=== PATIENT | female | born 1985 | race Caucasian/White ===

== ENCOUNTER 2022-03-10 11:23 | Emergency (ER) | payer OTHER, SELFPAY ==
--- NOTE | 2022-03-10 | ECG_ITS ---
Test Reason : chest pain Blood Pressure : / mmHG Vent. Rate : 073 BPM Atrial Rate : 073 BPM P-R Int : 182 ms QRS Dur : 088 ms QT Int : 384 ms P-R-T Axes : 040 -31 011 degrees QTc Int : 423 ms Normal sinus rhythm Left axis deviation Abnormal ECG When compared with ECG of 28-JUL-2017 22:13, Nonspecific T wave abnormality, improved in Anterolateral leads QT has shortened Referred By: Generic ED Physician Electronically Signed By:SHER GARCIA
--- NOTE | ~2022-03-10 | XR_ITS ---
EXAMINATION: XR CHEST CLINICAL INFORMATION: Chest pain COMPARISON: Previous chest x-ray July 2017 TECHNIQUE: 2 views of the chest were obtained. FINDINGS: The cardiac and mediastinal contours are normal. The lungs are clear. There is no pleural effusion or pneumothorax. There is slight elevation of the right hemidiaphragm that is unchanged. There are mild degenerative changes of the spine. XR/XR chest 2V IMPRESSION: No evidence for acute disease in the chest.
[2022-03-10 11:47] VITALS: BP 137/83; PULSE 75; RESP 18; TEMP 36.9; O2SAT 99; BMI 45.6
[2022-03-10 12:04] LABS: MANUAL DIFF FLAG NO
[2022-03-10 12:06] LABS: Basophils Absolute Auto 0.1 X10*3/uL (0.0-0.2); Basophils Percent Auto 0.7 % (0-2); Eosinophils Absolute Auto 0.1 X10*3/uL (0.0-0.4); Eosinophils Percent Auto 1.7 % (0-4); Hematocrit 38.7 % (37.0-47.0); Hemoglobin 12.4 g/dl (12.0-16.0); Imm Gran Abs Auto 0.02 X10*3/uL (0.00-0.03); Imm Gran Pct Auto 0.3 % (0.0-0.4); Lymphocytes Absolute Auto 1.9 X10*3/uL (1.2-4.9); Lymphocytes Percent Auto 26.9 % (20-40); Mean Corpuscular Hemoglobin 26.1 pg (27.0-33.0); Mean Corpuscular Volume 81.3 fL (80.0-98.0); Mean Platelet Volume 11.3 fL (9.4-12.3); Monocytes Absolute Auto 0.4 X10*3/uL (0.1-1.2); Monocytes Percent Auto 5.6 % (2-11); Neutrophils Absolute Auto 4.7 x10*3/uL (2.0-8.3); Neutrophils Percent Auto 64.8 % (45-73); Platelet Count 269 X10*3/uL (160-400); Red Blood Count 4.76 X10*6/uL (4.20-5.50); Red Cell Distribution Width 14.5 % (11.0-16.0); White Blood Count 7.2 X10*3/uL (4.8-10.8)
[2022-03-10 12:21] LABS: COVID-19 Test Negative (Negative); IDNOW Serial# 16C4AD1C
[2022-03-10 12:26] LABS: Anion Gap 11 (12-20); Blood Urea Nitrogen 13 mg/dL (9-16); Calcium 9.5 mg/dL (8.4-10.2); Carbon Dioxide 28 mmol/L (22-29); Chloride 105 mmol/L (96-108); Creatinine Clr Calc Pharmacy 127.9; Estimated Glomerular Filt Rate > 60; Glucose Random 102 mg/dL (60-115); Potassium 4.6 mmol/L (3.3-5.1); Sodium 139 mmol/L (135-145)
[2022-03-10 12:30] LABS: Troponin-I High Sensitivity < 3.5 ng/L (<3.5-17.0)
--- NOTE | 2022-03-10 13:29 | ED.CHESTPAIN ---
HPI - Chest Pain General Chief Complaint: Chest Pain Stated Complaint: chest pain , l shoulder pain Time Seen by Provider: 03/10/22 13:20 Source: patient Mode of arrival: ambulatory History of Present Illness HPI narrative: 37-year-old female with no significant past medical history presenting to the ED complaining of left shoulder pain radiating down LUE x 1 week, now with left anterior chest wall tightness radiating to back woersening today. Admits symptoms worse with shoulder movement and deep breathing. Does take oral OCPs. Denies fever, chills, cough, SOB, abdominal pain, nausea/vomiting, pedal edema/calf tenderness, recent travel, history of clots complaint: chest pain Onset (ago): day(s) Related Data Previous Rx's Medication Instructions Recorded cyclobenzaprine 5 mg tablet 5 mg PO Q8H PRN pain (scale score 03/10/22 7-10) 5 days #14 tabs lidocaine 5 % topical patch 1 patch topical DAILY PRN pain #30 03/10/22 (Lidoderm) ea naproxen 500 mg tablet 500 mg PO BID PRN pain 10 days #20 03/10/22 tabs Allergies Allergy/AdvReac Type Severity Reaction Status Date / Time No Known Allergies [NKA] Allergy Mild NOT Unverified 05/29/20 17:44 APPLICABLE Review of Systems Review of Systems: Constitutional: No Fever, No Chills, No Night Sweats, No Fatigue, No Malaise ENT/Mouth: No Ear Pain, No sore throat, No Rhinorrhea, No Swallowing Difficulty Eyes: No Eye Pain, No Swelling, No Redness, No Vision Changes Cardiovascular: + Chest Pain, No SOB, No Dyspnea on Exertion, No Orthopnea, No Edema, No Palpitations Respiratory: No Cough, No Sputum, No Dyspnea Gastrointestinal: No Nausea, No Vomiting, No Diarrhea, No Constipation, No Abdominal pain Genitourinary: No irregular bleeding, No Dysuria, No Urinary Frequency, No Hematuria, No Flank Pain Musculoskeletal: + joint pain, No Myalgias, No Joint Swelling Skin: No Skin Lesions, No rash Neuro: No Weakness, No Numbness, + Paresthesias, No Loss of Consciousness, No Dizziness, No Headache Yes all other systems are reviewed and are negative [facility] Past Medical History Attestation statement: The following information was validated with the patient. Social History Social History Advance Directives: No Advance Directives Information Provided: Yes Physical Exam Vital Signs: Vital Signs: Last Vital Signs Temp 98.5 F 03/10/22 11:47 Pulse 75 03/10/22 11:47 Resp 18 03/10/22 11:47 BP 137/83 03/10/22 11:47 Pulse Ox 99 03/10/22 11:47 O2 Del Method 03/10/22 11:47 BMI result Body Mass Index 45.6 Const: General: cooperative, healthy appearing and no acute distress Orientation/consciousness: patient oriented x3 Limitations: no limitations HEENT: Head: Yes normal to inspection and Yes atraumatic Ears: hearing grossly normal bilaterally General nose exam: Normal external nose present Face and sinus: Yes normal facial exam Eyes: General: appearance normal, both eyes and all related structures EOM: EOMs intact bilaterally Neck: Neck: Yes normal visual inspection and Yes no meningeal signs Chest: Other: tenderness to palpation to substernal area and left anterior chest wall. No ecchymosis/erythema Chest palpation & inspection: normal inspection of the chest, no crepitus and tenderness Resp: Effort & Inspection: normal respiratory effort and no respiratory distress Auscultation: clear to auscultation bilaterally, no crackles, no rales, no rhonchi and no wheezes Cardio: Rate: regular rate Heart sounds: S1 normal heart sound present and S2 normal heart sound present Peripheral pulses: Peripheral pulses 2+ throughout GI: Inspection: Yes normal to inspection Palpation (GI): Soft to palpation, nontender, no guarding and not rigid : General: Yes no CVA tenderness Back/Spine/Pelvis: Back: no CVA tenderness Skin: Rashes: no rashes Wounds: no wounds Neuro: General: patient oriented x3, tone normal, moves all extremities, no meningeal signs and no focal motor deficits Gait exam (Neuro): Normal gait present Extrem: Other: Full range of motion intact to left shoulder. Neurovascular intact distally. Pain elicited on movement General: Yes normal to inspection Course Course Course Narrative: -1355--no leukocytosis. Initial troponin negative. COVID-19 negative XR chest 2V IMPRESSION: No evidence for acute disease in the chest. -1413--D-dimer negative > PE unlikely. Repeat troponin equivocal > IA unlikely >Results discussed with patient including worrisome signs symptoms and strict return precautions and close follow-up with PCP. She verbalized understanding and feels safe for discharge home this time MDM - Chest Pain MDM Narrative Medical decision making narrative: 37-year-old female with no significant past medical history presenting to the ED complaining of left shoulder pain radiating down LUE x 1 week, now with left anterior chest wall tightness radiating to back woersening today. On exam vital signs stable, NAD, nontoxic appearing, lungs CTA, no pedal edema/calf tenderness, chest pain reproducible on exam. Concern for atypical ACS vs PE vs PNA vs MSK pain/strain. Unlikely dissection/AAA Plan: EKG, labs, CXR Differential Diagnosis Differential diagnosis: Likely unstable angina pectoris, atypical chest pain, costochondritis and chest pain Medical Records Data Attestation: I reviewed the patient's medical records. Lab Data Attestation: I reviewed the patient's lab results. Result diagrams: 03/10/22 11:59 03/10/22 11:59 Labs: Lab Results 03/10/22 03/10/22 03/10/22 Range/Units 11:59 11:59 11:59 WBC 7.2 (4.8-10.8) X10*3/uL RBC 4.76 (4.20-5.50) X10*6/uL Hgb 12.4 (12.0-16.0) g/dl Hct 38.7 (37.0-47.0) % MCV 81.3 (80.0-98.0) fL MCH 26.1 L (27.0-33.0) pg MCHC 32.0 (31.0-35.0) g/dl RDW 14.5 (11.0-16.0) % Plt Count 269 (160-400) X10*3/uL MPV 11.3 (9.4-12.3) fL Immature Gran % (Auto) 0.3 (0.0-0.4) % Neut % (Auto) 64.8 (45-73) % Lymph % (Auto) 26.9 (20-40) % [place] % (Auto) 5.6 (2-11) % Eos % (Auto) 1.7 (0-4) % Baso % (Auto) 0.7 (0-2) % Lymph # (Auto) 1.9 (1.2-4.9) X10*3/uL [place] # (Auto) 0.4 (0.1-1.2) X10*3/uL Eos # (Auto) 0.1 (0.0-0.4) X10*3/uL Baso # (Auto) 0.1 (0.0-0.2) X10*3/uL Abs Immat Gran (auto) 0.02 (0.00-0.03) X10*3/uL Absolute Neuts (auto) 4.7 (2.0-8.3) x10*3/uL Absolute Nucleated RBC 0.000 (0.0-0.012) X10*3/uL Nucleated RBC % (auto) 0.0 (0.0-0.2) /100WBC PT (10.0-13.1) SEC INR (0.9-1.1) D-Dimer High Sensitivty NG/ML Sodium 139 (135-145) mmol/L Potassium 4.6 (3.3-5.1) mmol/L Chloride 105 (96-108) mmol/L Carbon Dioxide 28 (22-29) mmol/L Anion Gap 11 L (12-20) BUN 13 (9-16) mg/dL Creatinine 0.89 (0.5-1.4) mg/dL Estim Creat Clear Calc 127.9 Estimated GFR > 60 Random Glucose 102 (60-115) mg/dL Calcium 9.5 (8.4-10.2) mg/dL Total Bilirubin 0.3 (0.0-1.0) mg/dL Direct Bilirubin < 0.2 (0.0-0.5) mg/dL AST 12 (5-31) U/L ALT 11 (0-31) U/L Alkaline Phosphatase 73 (39-117) U/L Troponin I High Sens < 3.5 (<3.5-17.0) ng/L Total Protein 7.5 (6.5-8.0) g/dL Albumin 4.3 (3.5-5.0) g/dL Lipase 32 (8-78) U/L COVID-19 ([facility]) (Negative) COVID-19 Clin Com 03/10/22 03/10/22 03/10/22 Range/Units 11:59 13:43 13:43 WBC (4.8-10.8) X10*3/uL RBC (4.20-5.50) X10*6/uL Hgb (12.0-16.0) g/dl Hct (37.0-47.0) % MCV (80.0-98.0) fL MCH (27.0-33.0) pg MCHC (31.0-35.0) g/dl RDW (11.0-16.0) % Plt Count (160-400) X10*3/uL MPV (9.4-12.3) fL Immature Gran % (Auto) (0.0-0.4) % Neut % (Auto) (45-73) % Lymph % (Auto) (20-40) % [place] % (Auto) (2-11) % Eos % (Auto) (0-4) % Baso % (Auto) (0-2) % Lymph # (Auto) (1.2-4.9) X10*3/uL [place] # (Auto) (0.1-1.2) X10*3/uL Eos # (Auto) (0.0-0.4) X10*3/uL Baso # (Auto) (0.0-0.2) X10*3/uL Abs Immat Gran (auto) (0.00-0.03) X10*3/uL Absolute Neuts (auto) (2.0-8.3) x10*3/uL Absolute Nucleated RBC (0.0-0.012) X10*3/uL Nucleated RBC % (auto) (0.0-0.2) /100WBC PT 11.3 (10.0-13.1) SEC INR 1.0 (0.9-1.1) D-Dimer High Sensitivty < 150 NG/ML Sodium (135-145) mmol/L Potassium (3.3-5.1) mmol/L Chloride (96-108) mmol/L Carbon Dioxide (22-29) mmol/L Anion Gap (12-20) BUN (9-16) mg/dL Creatinine (0.5-1.4) mg/dL Estim Creat Clear Calc Estimated GFR Random Glucose (60-115) mg/dL Calcium (8.4-10.2) mg/dL Total Bilirubin (0.0-1.0) mg/dL Direct Bilirubin (0.0-0.5) mg/dL AST (5-31) U/L ALT (0-31) U/L Alkaline Phosphatase (39-117) U/L Troponin I High Sens < 3.5 (<3.5-17.0) ng/L Total Protein (6.5-8.0) g/dL Albumin (3.5-5.0) g/dL Lipase (8-78) U/L COVID-19 ([facility]) Negative (Negative) COVID-19 Clin Com See Note ECG Data ECG #1: Attestation: I personally reviewed and interpreted this ECG as follows: ECG interpretation date: 03/10/22 ECG interpretation time: 11:46 Prior ECG tracings: available for review Interpretation: EKG normal sinus rhythm at a rate of 73. Nonspecific T-wave abnormality improved in anterior lateral leads from prior EKGs. QT has shortened. QTC 423 Discharge Plan Discharge Clinical Impression: Atypical chest pain, Left shoulder pain Patient Disposition: Home, Self-Care Instructions: Noncardiac Chest Pain (ED), Shoulder Pain (ED) Additional Instructions: Your blood work and chest x-ray were reassuring today in the emergency department. Please see epic follow up with her doctor Your pain is likely musculoskeletal Flexeril is a muscle relaxer, take at night as it makes you drowsy, do not drive, drink alcohol, or operate machinery while taking it Naproxen as an anti-inflammatory / pain medication, take with food Lidoderm patches are numbing patches, apply to painful area In addition take Tylenol at home If symptoms persist or worsen, pain becomes unbearable, you developed urinary retention or incontinence, or weakness return to the ED Prescriptions: New lidocaine [Lidoderm] 5 % adhesive patch,medicated 1 patch topical DAILY MDD remove after 12 hours PRN (Reason: pain) Qty: 30 0RF Rx Instructions: leave on most painful area for up to 12 hrs naproxen 500 mg tablet 500 mg PO BID PRN (Reason: pain) 10 Days Qty: 20 0RF cyclobenzaprine 5 mg tablet 5 mg PO Q8H PRN (Reason: pain (scale score 7-10)) 5 Days Qty: 14 0RF Referrals: Physician,Unknown J [Primary Care Provider] - 3 days
[2022-03-10 13:44] LABS: Alanine Aminotransferase 11 U/L (0-31); Albumin Level 4.3 g/dL (3.5-5.0); Alkaline Phosphatase 73 U/L (39-117); Aspartate Amino Transferase 12 U/L (5-31); Bilirubin Direct < 0.2 mg/dL (0.0-0.5); Bilirubin Total 0.3 mg/dL (0.0-1.0); Lipase 32 U/L (8-78); Total Protein 7.5 g/dL (6.5-8.0)
[2022-03-10 14:01] LABS: Prothrombin Time 11.3 SEC (10.0-13.1)
[2022-03-10 14:04] LABS: D Dimer High Sensitivity < 150 NG/ML
[2022-03-10 14:11] LABS: Troponin-I High Sensitivity < 3.5 ng/L (<3.5-17.0)
[2022-03-10 14:30] VITALS: BP 126/71; PULSE 66; RESP 16; O2SAT 97
== END 2022-03-10 14:32 | disposition home or self-care (01) ==
PROVIDERS: Physician Assistant; Emergency Provider Emergency Medicine
DX: R07.89 Other chest pain (principal); R20.2 Paresthesia of skin; M25.512 Pain in left shoulder; Z20.822 Contact with and (suspected) exposure to COVID-19
CPT/HCPCS: 36415; 71046; 80048; 80076; 83690; 84484; 85025; 85379; 85610; 87635; 93005; 99283

== ENCOUNTER 2023-05-19 11:36 | Outpatient (REF) | payer OTHER, SELFPAY ==
[2023-05-19 11:53] LABS: MANUAL DIFF FLAG NO
[2023-05-19 12:19] LABS: Basophils Percent Auto 0.7 % (0-2); Eosinophils Absolute Auto 0.1 X10*3/uL (0.0-0.4); Eosinophils Percent Auto 2.2 % (0-4); Hemoglobin 12.5 g/dl (12.0-16.0); Imm Gran Abs Auto 0.01 X10*3/uL (0.00-0.03); Imm Gran Pct Auto 0.2 % (0.0-0.4); Lymphocytes Percent Auto 34.6 % (20-40); Mean Corpuscular HGB Conc 32.1 g/dl (31.0-35.0); Mean Corpuscular Hemoglobin 26.1 pg (27.0-33.0); Mean Corpuscular Volume 81.4 fL (80.0-98.0); Mean Platelet Volume 12.4 fL (9.4-12.3); Monocytes Absolute Auto 0.5 X10*3/uL (0.1-1.2); Neutrophils Absolute Auto 3.2 x10*3/uL (2.0-8.3); Neutrophils Percent Auto 54.3 % (45-73); Platelet Count 286 X10*3/uL (160-400); Red Blood Count 4.79 X10*6/uL (4.20-5.50); Red Cell Distribution Width 15.1 % (11.0-16.0); White Blood Count 5.9 X10*3/uL (4.8-10.8)
[2023-05-19 12:25] LABS: Appearance Urine Turbid; Color Urine Dark Yellow; Glucose Urine UA Negative (Negative); Leukocyte Esterase Urine Large (3+) (Negative); Nitrite Urine Negative (Negative); Specific Gravity - Urine 1.025 (1.005-1.025); UMIC TRIGGER UACC YES; Urine Blood Negative (Negative); Urine Ketones Negative (Negative); Urine Protein Trace mg/dL (Neg-Trace)
[2023-05-19 12:37] LABS: Alanine Aminotransferase 18 U/L (0-31); Albumin Level 4.1 g/dL (3.5-5.0); Alkaline Phosphatase 60 U/L (39-117); Anion Gap 12 (12-20); Aspartate Amino Transferase 16 U/L (5-31); Bilirubin Total 0.4 mg/dL (0.0-1.0); Blood Urea Nitrogen 13 mg/dL (9-16); Calcium 9.6 mg/dL (8.4-10.2); Carbon Dioxide 25 mmol/L (22-29); Chloride 107 mmol/L (96-108); Cholesterol 222 mg/dL (<200); Estimated Glomerular Filt Rate > 60; Glucose Fasting 86 mg/dL (60-99); HDL Cholesterol 35 mg/dL (>40); LDL Cholesterol Calculated 160 mg/dL (<100); Potassium 3.8 mmol/L (3.3-5.1); Sodium 140 mmol/L (135-145); Total Protein 7.3 g/dL (6.5-8.0); Triglycerides 137 mg/dL (<150)
[2023-05-19 13:32] LABS: Bacteria Urine 4+ (None Seen); Hyaline Casts Urine 0-2 /LPF (0-2); Renal Epithelial Cells Urine Present; Squamous Epithelial Cell Urine >20 /HPF (0-2); Transitional Epi Cells Urine Present; UACC Culture Trigger YES; WBC Urine 21-50 /HPF (0-5)
== END 2023-05-19 11:37 | disposition home or self-care (01) ==
LOC: HO.LNP 11:36
PROVIDERS: Visit Provider Internal Medicine
DX: Z00.00 Encounter for general adult medical examination without abnormal findings (principal)
CPT/HCPCS: 80053; 80061; 81001; 81003; 85025; 87086

== ENCOUNTER 2023-05-26 14:35 | Outpatient (REF) | payer OTHER, SELFPAY ==
[2023-05-26 14:45] LABS: Appearance Urine Clear; Color Urine Yellow; Glucose Urine UA Negative (Negative); Leukocyte Esterase Urine Moderate (2+) (Negative); Nitrite Urine Negative (Negative); PH 5.5 (5.0-9.0); UMIC TRIGGER UA YES; Urine Blood Negative (Negative); Urine Ketones Negative (Negative); Urine Protein Negative (Neg-Trace)
[2023-05-26 14:48] LABS: Bacteria Urine Trace (None Seen); Hyaline Casts Urine 0-2 /LPF (0-2); RBC Urine 0-2 /HPF (0-2); WBC Urine 21-50 /HPF (0-5)
== END 2023-05-26 14:36 | disposition home or self-care (01) ==
LOC: HO.LNP 14:35
PROVIDERS: Visit Provider Internal Medicine
DX: R31.9 Hematuria, unspecified (principal)
CPT/HCPCS: 81001

== ENCOUNTER 2024-05-21 10:57 | Outpatient (REF) | payer OTHER, SELFPAY ==
[2024-05-21 11:24] LABS: Appearance Urine Turbid; Color Urine Yellow; Glucose Urine UA Negative (Negative); Leukocyte Esterase Urine Moderate (2+) (Negative); Nitrite Urine Negative (Negative); PH 5.5 (5.0-9.0); Specific Gravity - Urine 1.025 (1.005-1.025); UMIC TRIGGER UACC YES; Urine Blood Negative (Negative); Urine Ketones Negative (Negative); Urine Protein Trace mg/dL (Neg-Trace)
[2024-05-21 11:35] LABS: Bacteria Urine 4+ (None Seen); Hyaline Casts Urine 0-2 /LPF (0-2); RBC Urine 0-2 /HPF (0-2); Squamous Epithelial Cell Urine >20 /HPF (0-2); UACC Culture Trigger YES; WBC Urine >50 /HPF (0-5)
[2024-05-21 12:03] LABS: Alanine Aminotransferase 18 U/L (0-31); Alkaline Phosphatase 86 U/L (39-117); Anion Gap 14 (12-20); Aspartate Amino Transferase 15 U/L (5-31); Bilirubin Total 0.3 mg/dL (0.0-1.0); Blood Urea Nitrogen 17 mg/dL (9-16); Calcium 9.7 mg/dL (8.4-10.2); Carbon Dioxide 27 mmol/L (22-29); Chloride 105 mmol/L (96-108); Cholesterol 180 mg/dL (<200); Estimated Glomerular Filt Rate > 60; Glucose Fasting 95 mg/dL (60-99); HDL Cholesterol 39 mg/dL (>40); LDL Cholesterol Calculated 120 mg/dL (<100); Potassium 4.1 mmol/L (3.3-5.1); Sodium 142 mmol/L (135-145); Total Protein 7.1 g/dL (6.5-8.0); Triglycerides 108 mg/dL (<150)
== END 2024-05-21 10:58 | disposition home or self-care (01) ==
LOC: HO.LNP 10:57
PROVIDERS: Visit Provider Internal Medicine
DX: Z00.00 Encounter for general adult medical examination without abnormal findings (principal); E78.00 Pure hypercholesterolemia, unspecified
CPT/HCPCS: 80053; 80061; 81001; 87086

== ENCOUNTER 2024-05-28 13:28 | Outpatient (REF) | payer OTHER, SELFPAY ==
[2024-05-28 13:32] LABS: MANUAL DIFF FLAG NO
[2024-05-28 13:36] LABS: Basophils Absolute Auto 0.1 X10*3/uL (0.0-0.2); Basophils Percent Auto 0.7 % (0-2); Eosinophils Absolute Auto 0.2 X10*3/uL (0.0-0.4); Eosinophils Percent Auto 2.3 % (0-4); Hematocrit 35.6 % (37.0-47.0); Hemoglobin 11.4 g/dl (12.0-16.0); Imm Gran Abs Auto 0.03 X10*3/uL (0.00-0.03); Imm Gran Pct Auto 0.4 % (0.0-0.4); Lymphocytes Absolute Auto 1.8 X10*3/uL (1.2-4.9); Lymphocytes Percent Auto 25.8 % (20-40); Mean Corpuscular Hemoglobin 25.9 pg (27.0-33.0); Mean Corpuscular Volume 80.7 fL (80.0-98.0); Mean Platelet Volume 11.7 fL (9.4-12.3); Monocytes Absolute Auto 0.4 X10*3/uL (0.1-1.2); Monocytes Percent Auto 6.2 % (2-11); Neutrophils Absolute Auto 4.4 x10*3/uL (2.0-8.3); Neutrophils Percent Auto 64.6 % (45-73); Platelet Count 271 X10*3/uL (160-400); Red Blood Count 4.41 X10*6/uL (4.20-5.50); White Blood Count 6.9 X10*3/uL (4.8-10.8)
[2024-05-28 14:11] LABS: TSH reflex Free T4 1.09 uIU/mL (0.32-4.0)
== END 2024-05-28 13:29 | disposition home or self-care (01) ==
LOC: HO.LNP 13:28
PROVIDERS: Visit Provider Internal Medicine
DX: R63.5 Abnormal weight gain (principal)
CPT/HCPCS: 84443; 85025

== ENCOUNTER 2024-06-01 11:03 | Outpatient (REF) | payer OTHER, SELFPAY ==
[2024-06-01 11:59] LABS: Iron 42 mcg/dL (30-160); Percent Iron Saturation 13 % (15-50); Total Iron Binding Capacity 331 mcg/dL (228-428); Unsaturated Iron Binding 289 ug/dL
== END 2024-06-01 11:04 | disposition home or self-care (01) ==
LOC: HO.LNP 11:03
PROVIDERS: Visit Provider Internal Medicine
DX: D64.9 Anemia, unspecified (principal)
CPT/HCPCS: 83540

== ENCOUNTER 2024-07-17 13:54 | Outpatient (AMB) | payer OTHER, SELFPAY ==
[2024-07-17 14:01] VITALS: BP 104/72; PULSE 81; BMI 53.2
--- NOTE | 2024-07-17 14:01 | A.OFFVIS_ITS ---
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 Pt feeling okay. Professor Of Counseling Required: No Accompanied by: Spouse Allergies No Known Allergies [NKA] Allergy (Mild, Unverified 05/29/20 17:44) NOT APPLICABLE Medication List - Last Reconciled 07/17/24 by Johnny Gerber MD escitalopram oxalate 20 mg PO DAILY gabapentin 400 mg PO BID trazodone 100 mg PO BEDTIME PRN HPI Comments Details: Thank you for referring Kaela in cardiology consultation today for screening for cardiomyopathy. She is a 39-year-old female with prior history of mixed hyperlipidemia suggestive of metabolic syndrome as well as morbid obesity. She is referred here for further evaluation. She says her father was diagnose with cardiomegaly and cardiomyopathy at a young age and then of sudden cardiac date at age of 54. She was told that this is probably familial. She has not had any cardiac symptoms. She used to exercise to lose weight but has since not been exercising more recently. Denies any active cardiac symptoms. Denies any exertional chest pain or shortness of breath. No orthopnea, PND, leg edema. Denies any palpitation, lightheadedness, syncope. She was referred here for further evaluation. EKG 2 years ago showed left axis deviation. EKG today also shows left axis deviation with incomplete right bundle-branch block. [facility] Medical History Morbid obesity Family History Father Cardiomyopathy Cardiomegaly Sister Breast cancer Sister Atrial fibrillation HTN (hypertension) Social History Alcohol intake: never Patient Tobacco Use Status: Never used Tobacco Review of Systems Const Denies chills, Denies fatigue, Denies fever(s), Denies weight gain and Denies weight loss Eyes Denies loss of vision ENT Denies dizziness Card Denies chest pain, Denies leg edema, Denies lightheadedness, Denies palpitations, Denies dyspnea on exertion, Denies orthopnea and Denies other Resp Denies cough, Denies dyspnea on exertion and Denies wheezing GI Denies hematochezia and Denies change in stool character Denies urinary frequency and Denies dysuria Musc Denies abnormal gait, Denies muscle weakness, Denies numbness, Denies radiating pain into limb and Denies tingling Skin/Breast Denies nail changes and Denies rash Neuro Denies Abnormal speech present, Denies abnormal gait, Denies dizziness, Denies loss of vision, Denies memory loss, Denies numbness and Denies tingling Psych Denies depression and Denies memory loss Endo Denies fatigue and Denies palpitations Russ/Lymph Denies easy bruising Aller/Immun Denies wheezing Physical Exam Vital Signs: Last Vital Signs Pulse 81 07/17/24 14:01 BP 104/72 07/17/24 14:01 BMI result Body Mass Index 53.2 Const General: cooperative, comfortable, no acute distress, alert and awake Nutritional Appearance: obese morbidly obese Orientation/consciousness: patient oriented x3 Limitations: no limitations HEENT Head: Yes normocephalic and Yes atraumatic Neck Neck: Yes trachea midline, Yes supple and Yes no JVD Resp Effort & Inspection: normal respiratory effort Auscultation: clear to auscultation bilaterally Cardio Jugular venous distension: no JVD Rate: regular rate Rhythm: regular rhythm Heart sounds: S1 normal heart sound present, S2 normal heart sound present, no click, no gallops, no murmurs and no rubs GI Auscultation: normal bowel sounds Skin General skin exam: no rashes or lesions noted Neuro General: patient oriented x3 and no focal motor deficits Speech: No Abnormal speech present Extrem General: Yes no clubbing, cyanosis or edema Office Procedures EKG Details: EKG shows normal sinus rhythm with incomplete right bundle-branch block and left axis deviation [id number], Complete Assessment & Plan Assessment & Plan (1) Family history of cardiomyopathy: Code(s): Z82.49 - Family history of ischemic heart disease and other diseases of the circulatory system Category: Medical Plan: Patient with family history of cardiomyopathy and sudden cardiac that. She does have left axis deviation on EKG. I would consider doing an echocardiogram to evaluate for LV size and systolic function to rule out any process of cardiomyopathy at this point time. If this is within normal limits she probably should get an echo every 5 years to screen for them to evaluate for phenotypic presentation of genetic abnormality if present. Unfortunately there was no genetic precedence. At current point time she is having no cardiac symptoms and no further workup is indicated. (2) Morbid obesity: Code(s): E66.01 - Morbid (severe) obesity due to excess calories Category: Medical Plan: Her main health concern currently is morbid obesity. This was discussed with her. We discussed about importance of aggressive weight loss program. She says she has been trying. We discussed about various strategies including referral to bariatric surgical center. She wants to think about it. She is however very motivated in pursuing aggressive weight loss program. Her obesity is responsible for her current lipid pattern with metabolic syndrome pattern of lipid abnormality. Discussed about aggressive weight loss program again. Will follow up in the clinic if need be. Thank you for allowing me to partake in his care Orders: Orders CA echo transthoracic complete Today Z82.49 - Family history of ischemic heart disease and other diseases of the circulatory system Medications: Discontinued cyclobenzaprine Discontinued Reason: Patient no longer taking 5 mg PO Q8H 5 days PRN 14 t abs 0RF pain (scale score 7-10) naproxen Discontinued Reason: Patient no longer taking 500 mg PO BID 10 days PRN 20 tabs 0RF pain lidocaine 5% (Lidoderm) leave on most painful area for up to 12 hrs Discontinued Reason: Patient no longer taking 1 patch topical DAILY PRN 30 ea 0RF pain MDD remove after 12 hours Coding Level of Care Code New Pt Level 3 (98791) Diagnoses Family history of cardiomyopathy Z82.49 Morbid obesity E66.01 CPT Codes EKG - CPT: 71975-Grielobboonlajihm, Complete ([id number])
== END 2024-07-17 14:42 | disposition home or self-care (01) ==
LOC: HO.HCS 13:55
PROVIDERS: PCP Internal Medicine; Visit Provider Internal Medicine Cardiovascular Disease
DX: Z82.49 Family history of ischemic heart disease and other diseases of the circulatory system (principal); E66.01 Morbid (severe) obesity due to excess calories
CPT/HCPCS: 93010; 99203

== ENCOUNTER → 2024-07-17 13:54 | Outpatient (BNVA) | payer OTHER, SELFPAY | PROVIDERS: PCP Internal Medicine; Visit Provider Internal Medicine Cardiovascular Disease | DX: I45.19 Other right bundle-branch block (principal); E66.01 Morbid (severe) obesity due to excess calories; Z68.43 Body mass index [BMI] 50.0-59.9, adult; Z82.49 Family history of ischemic heart disease and other diseases of the circulatory system | CPT/HCPCS: 93005; 99202 ==

== ENCOUNTER → 2024-08-08 08:01 | Outpatient (REF) | payer OTHER, SELFPAY ==
--- NOTE | 2024-08-08 08:05 | CA_ITS ---
Transthoracic Echocardiogram Patient (Last, First, Middle): Kaela Luong, Gender: Female Date of : 1985 Age: 39 Procedure Date: 08/08/2024 Procedure Type: Transthoracic Echocardiogram Location: OP Height: 172.72 cm Weight: 158.76 kg BSA: 2.59 m2 Heart Rate: bpm BP: 119 / 72 mmHg [employer] Adf Consultant: PATY Referring MD: Johnny Gerber MD Symptoms: Z82.49 - Family history of ischemic heart disease and other diseases of ... Study Quality: Fair ECG Rhythm: Sinus Conclusions: - The left ventricular systolic function is normal. The calculated ejection fraction is 67% by biplane method. - Wrmh-oe-ipwpjdnn focal hypertrophy of the basal septum. - No obvious valvular pathology seen on this study. Findings Left Ventricle Normal left ventricular cavity size. The left ventricular systolic function is normal. The calculated ejection fraction is 67% by biplane method. There is no evidence of regional wall motion abnormalities. Diastolic function is normal for age. Eomd-cn-ygnnwqxk focal hypertrophy of the basal septum. LV peak GLS -22.6%. Right Ventricle Mildly increased right ventricular cavity size. There is normal right ventricular systolic function. Atria Both atria are normal in size. Aortic Valve The aortic valve was not well visualized. There is no aortic valve stenosis. There is no aortic valve regurgitation. Mitral Valve The mitral valve appears normal. There is no mitral valve regurgitation. There is no mitral valve stenosis. Pulmonic Valve The pulmonic valve is likely normal. Tricuspid Valve There is no tricuspid valve regurgitation. Tricuspid regurgitation envelope is inadequate for calculation of right ventricular systolic pressure. Great Vessels The asc aorta is normal in size. Venous The inferior vena cava is normal in size and collapses greater than 50% with inspiration. Pericardium/Pleural There is no evidence of pericardial effusion. Prior Study Comparison No prior study available for comparison. Recommendations, Care & Conclusions No obvious valvular pathology seen on this study. Measurements 2D Linear Measurements IVSd: 1.16 0.6-0.9/0.6-1.0 cm LVIDd: 4.87 3.9-5.3/4.2-5.9 cm LVIDd Index: 1.88 2.4-3.2/2.2-3.1 cm/m2 LVIDs: 2.73 2.0-3.6 cm LVPWd: 1.24 0.7-1.1 cm LA Diam: 4.40 2.7-3.8/3.0-4.0 cm LAIDs Index: 1.70 1.5-2.3 cm/m2 LV Mass: 279.49 67-162/88-224 g LV Mass Index: 107.91 43-95/49-115 g/m2 LVOT Diam: 2.30 3.0+(-)1.3 cm 2D Systolic Function EF 4C: 70.60 >55% EF 2C: 65.30 >55% EF BiP: 67.10 >55% Mitral Valve MV Pk E: 0.91 MV PK A: 0.65 MV Decel Time: 247.00 E/A: 1.40 E'Lateral: 10.20 E'Medial: 7.62 E/E' Med: 12.00 E/E' Lat: 9.00 PHT: 72.00 MVA PHT: 3.06 Decel Cache: 3.70 Aortic Valve AoV Pk Jostin: 1.51 AoV Mn Jostin: 1.13 AoV VTI: 0.38 AoV Pk Grad: 9.00 Aov Mn Grad: 5.00 JIL Cont.VTI: 2.60 LVOT LVOT Pk Jostin: 1.01 LVOT Mn Jostin: 0.75 LVOT VTI: 0.24 LVOT Pk Grad: 4.00 LVOT Mn Grad: 2.00 LVOT Diam: 2.30 LVOT Area: 4.15 Diastolic Function MV Pk E: 0.91 MV Pk A: 0.65 E/A: 1.40 E'Medial: 7.62 E/E' Med: 12.00 E' Laterial: 10.20 E/E' Lat: 9.00 Right Ventricle TAPSE (mm): 20.90 TVS' Jostin: 9.68 Tricuspid Valve RA Press: 3.00 Great Vessels Aorta Ao Asc: 3.00 2.1-3.4 cm Updated in Other Vendor System with Status of Final Chi Harrison MD electronically signed on 08/10/2024 12:10:45 PM with status of Final
== END ==
LOC: HO.CARD 08:01
PROVIDERS: PCP Internal Medicine; Visit Provider Internal Medicine Cardiovascular Disease
DX: Z82.49 Family history of ischemic heart disease and other diseases of the circulatory system (principal)
CPT/HCPCS: 93306; 93356

== ENCOUNTER → 2024-08-08 08:05 | Outpatient (BNV) | payer OTHER, SELFPAY | PROVIDERS: PCP Internal Medicine; Visit Provider Internal Medicine | DX: I42.2 Other hypertrophic cardiomyopathy (principal); Z82.49 Family history of ischemic heart disease and other diseases of the circulatory system | CPT/HCPCS: 93306; 93356 ==

== ENCOUNTER 2025-05-20 10:25 | Outpatient (REF) | payer OTHER, SELFPAY ==
--- OUTSIDE RECORDS SUMMARY | 2024-05-28 05:30 | XMS_ITS ---
Author Organization Ha Couch MD Address [address] [place], [place] [id number] Care Team Providers Care Contract Serviceman Name Role Phone Ha Couch Primary Care Provider [phone] Allergies No Known Allergies Results Component Value Reference Range Notes Complete Blood Count Auto Di ff Reviewed date:05/31/2024 03:27:23 PM Interpretation: Performing Lab:[facility], [address] [place] [phone] Notes/Report: White Blood Count 6.9 4.8-10.8 X10*3/uL Red Blood Count 4.41 4.20-5.50 X10*6/uL Hemoglobin 11.4 12.0-16.0 g/dl Hematocrit 35.6 37.0-47.0 % Mean Corpuscular Volume 80.7 80.0-98.0 fL Mean Corpuscular Hemoglobin 25.9 27.0-33.0 pg Mean Corpuscular HGB Conc 32.0 31.0-35.0 g/dl Red Cell Distribution Width 15.0 11.0-16.0 % Platelet Count 271 160-400 X10*3/uL Mean Platelet Volume 11.7 9.4-12.3 fL Neutrophils Percent Auto 64.6 45-73 % Imm Gran Pct Auto 0.4 0.0-0.4 % Lymphocytes Percent Auto 25.8 20-40 % Monocytes Percent Auto 6.2 2-11 % Eosinophils Percent Auto 2.3 0-4 % Basophils Percent Auto 0.7 0-2 % NRBC Pct Auto 0.0 0.0-0.2 /100WBC Neutrophils Absolute Auto 4.4 2.0-8.3 x10*3/u L Imm Gran Abs Auto 0.03 0.00-0.03 X10*3/uL Lymphocytes Absolute Auto 1.8 1.2-4.9 X10*3/u L Monocytes Absolute Auto 0.4 0.1-1.2 X10*3/uL Eosinophils Absolute Auto 0.2 0.0-0.4 X10*3/u L Basophils Absolute Auto 0.1 0.0-0.2 X10*3/uL NRBC Abs Auto 0.000 0.0-0.012 X10*3/uL TSH reflex Free T4 Reviewed date:05/28/2024 05:01:51 PM Interpretation: Performing Lab:[facility], [address] [place] [phone] Notes/Report: TSH reflex Free T4 1.09 0.32-4.0 uIU/mL REASON FOR VISIT ANNUAL EXAM Medications Medication SIG (Take, Route, Frequency, Duration) Notes Start Date End Date Status Omeprazole 20 MG 1 tablet 30 minutes before morning meal Orally Once a day for 30 day(s) Active Lexapro 20 MG 1 tablet Orally Once a day Active Albuterol Sulfate 108 (90 Base) MCG/ACT 1 puff as needed Inhalation every 4 hrs Not-Taking Cholecalciferol 50 MCG (2000 UT) 1 capsule Orally Once a day for 30 day(s) Active traZODone HCl 100 MG 1 tablet at bedtime Orally Once a day for 30 day(s) Active Gabapentin 600 MG 1 tablet Orally twic a day Active Norgestrel-Ethinyl Estradiol 0.3-30 MG-MCG 1 tablet Orally Once a day for 28 day(s) Active clonazePAM 0.5 MG 1 tablet Orally Once a day Active Flonase 50 MCG/DOSE 1 spray in each nostril Nasally Once a day for 30 day(s) Not-Taking Ferrous Sulfate 325 MG as directed Orally Not-Taking Social History Tobacco Use: Social History Observation Description Date Details (start date - stop date) Never Smoker NA - NA Tobacco Use/Smoking Question Answer Notes Patient is a nonsmoker Additional Findings: Tobacco Non-User Cu rrent non-smoker, currently using no form of tobacco Alcohol Screen Question Answer Notes Did you have a drink containing alcohol in the p ast year? No Points 0 Interpretation Negative Section Notes: patient states stopped drink ing 5 years ago Vital Signs Blood pressure systolic 122 mm Hg 05/28/20 24 Blood pressure diastolic 94 mm Hg 024 Height 68 in 05/28/2024 Weight 354 lbs 05/28/2024 BMI 53.82 kg/m2 05/28/2024 weight is up 54 pounds since 10-04-23 but the old scale was not correct back in September 2023 Encounters Encounter Location Date Provider Diagnosis Ha Couch MD [address] [place], [place] [id number] 05/28/2024 Ha Couch Unintended weight gain R63.5 ; Annual physical exam Z00.00 ; ARCHANA (obstructive sleep apnea) G47.33 ; Dysthymia F34.1 ; Elevated cholesterol E78.00 and Depression screening Z13.31 Assessments Encounter Date Diagnosis (ICD Code) Assessment Notes Treatment Notes Treatment Clinical Notes Section Notes 05/28/2024 Unintended weight gain (ICD-10 - R63.5) pending labs 05/28/2024 Annual physical exam (ICD-10 - Z00.00) labs reviewed and discussed with patient 05/28/2024 ARCHANA (obstructive sleep apnea) (ICD-10 - G47.33) has not gotten study yet, needs to schedule with Sleep medicine 05/28/2024 Dysthymia (ICD-10 - F34.1) doing well, will continue current regiment 05/28/2024 Elevated cholesterol (ICD-10 - E78.00) stable, will conitnue to monitor diet 05/28/2024 Depression screening (ICD-10 - Z13.31) negative screen Plan Of Treatment Treatment Notes Assessment Notes Unintended weight gain pending labs Annual physical exam labs reviewed and d iscussed with patient ARCHANA (obstructive sleep apnea) has not go tten study yet, needs to schedule with Sleep medicine Dysthymia doing well, will con tinue current regiment Elevated cholesterol stable, will conitn ue to monitor diet Depression screening negative screen Next Appt Details Follow Up: 6 Months, Reason: Provider Name:Ha carter, 05/28/2025 09:30:00 AM, [address], [address], [place], [place], [id number], Progress Notes * Kelsi LUONGOB: [birth year] (39 yo F)Acc No.[id number]:05/28/2024 Progress Notes Patient: Kaela Alvarado Provider: Lucy Couch MD :1985 A ge:39 Y S ex:Female Date:05/28/2024 [id number] Subjective: * Chief Complaints: * A NNUAL EXAM * HPI: D epression Screening: PHQ-9 L ittle interest or pleasure in doing things N ot at all, F eeling down, depressed, or hopeless N ot at all, T rouble falling or staying asleep, or sleeping too much N ot at all, F eeling tired or having little energy N ot at all, P oor appetite or overeating N ot at all, F eeling bad about yourself or that you are a failure, or have let yourself or your family down N ot at all, T rouble concentrating on things, such as reading the newspaper or watching television N ot at all, M oving or speaking so slowly that other people could have noticed; or the opposite, being so fidgety or restless that you have been moving around a lot more than usual N ot at all, T houghts that you would be better off or of hurting yourself in some way N ot at all, T otal Score 0 . I nterpretation and Intervention D epression Screening Findings N egative, F ollow-Up for Depression : review of PHQ-9 found negative result, no follow-up needed. patient is a 39 yo female here for yearly exam with review of recent labs and follow up of chronic issues. C ommunication Needs: Communication Needs D oes the patient have a hearing impairment N o, D oes the patient have a vision impairment? Y es, I f yes, what is the vision impairment? G lasses, D oes the patient have a cognition impairment? N o. S ESTHELA Questions: SDOH Questions I n the past year have you been worried about losing housing? N o, I n the past year have you or any family members you live with been unable to get any of the following when it was really needed? Check all that apply: N one. * ROS: G eneral/Constitutional: Patient denies f atigue , headache. C hange in appetite?denies. C hills d enies. F ever d enies. O phthalmologic: Blurred vision d enies. D ischarge d enies. P ain d enies. E NT: Decreased hearing d enies. S ore throat d enies.?Swollen glands d enies. E ndocrine: Cold intolerance d enies. E xcessive thirst d enies. H eat intolerance d enies. W eight loss d enies. R espiratory: Cough d enies. S hortness of breath at rest d enies. S hortness of breath with exertion d enies. W heezing d enies. C ardiovascular: Chest pain at rest d enies. C hest pain with exertion?denies. I rregular heartbeat d enies. S hortness of breath d enies. ? G astrointestinal: Abdominal pain d enies. C hange in bowel habits d enies. D iarrhea d enies. N ausea d enies. R ectal bleeding d enies. V omiting d enies . G enitourinary: Blood in urine d enies. D ifficulty urinating d enies. F requent urination d enies. U rinary incontinence D enies. M usculoskeletal: Patient denies m uscle aches. P ainful joints d enies. W eakness d enies. P eripheral Vascular: Patient denies r ed and blue toes. S kin: Dry skin d enies. I tching d enies. D enies?Mole(s), changes in moles, new moles or any lesions of concern. D enies P hotosensitivity. R jasper d enies. N eurologic: Dizziness d enies. F ainting d enies. H eadache?denies. * Medical History: * Surgical History: * Hospitalization/Major Diagno stic Procedure: * Family History: F ather: 54 yrs. M other: alive 64 yrs. 1 brother(s) , 2 sister(s) . 2 daughter(s) . . Cardiac Father other Healthy, Denies mental health/substance abuse family history, No pertinent family medical history. * Social History: T obacco Use: T obacco Use/Smoking P markus is a n onsmoker, A dditional Findings: Tobacco Non-User C urrent non-smoker, currently using no form of tobacco. D rugs/Alcohol: A lcohol Screen D id you have a drink containing alcohol in the past year? N o, P oints 0 , I nterpretation N egative. M iscellaneous: n o Caffeine. Children: yes, 2 girls. no Exercise. Home smoke detector use: yes. Housing: owning. Living with: family. Marital status: single. Occupation: weeks/months/years, works full-time. Pets: cats: dogs:1 dog 2 cats. no Travel outside of the [place]. p [facility] stopped drinking 5 years ago. * Medications: T akingclonazePAM 0.5 MG Tablet 1 tablet Orally Once a dayNorgestrel-Ethinyl Estradiol 0.3-30 MG-MCG Tablet 1 tablet Orally Once a dayGabapentin 600 MG Tablet 1 tablet Orally twice a dayOmeprazole 20 MG Tablet Delayed Release 1 tablet 30 minutes before morning meal Orally Once a dayCholecalciferol 50 MCG (2000 UT) Capsule 1 capsule Orally Once a daytraZODone HCl 100 MG Tablet 1 tablet at bedtime Orally Once a dayLexapro 20 MG Tablet 1 tablet Orally Once a dayTaking clonazePAM 0.5 MG Tablet 1 tablet Orally Once a dayTaking Norgestrel-Ethinyl Estradiol 0.3-30 MG-MCG Tablet 1 tablet Orally Once a dayTaking Gabapentin 600 MG Tablet 1 tablet Orally twice a dayTaking Omeprazole 20 MG Tablet Delayed Release 1 tablet 30 minutes before morning meal Orally Once a dayTaking Cholecalciferol 50 MCG (1999 UT) Capsule 1 capsule Orally Once a dayTaking traZODone HCl 100 MG Tablet 1 tablet at bedtime Orally Once a dayTaking Lexapro 20 MG Tablet 1 tablet Orally Once a dayNot-Taking/PRNAlbuterol Sulfate 108 (90 Base) MCG/ACT Aerosol Powder Breath Activated 1 puff as needed Inhalation every 4 hrsFlonase 50 MCG/DOSE Inhaler 1 spray in each nostril Nasally Once a dayFerrous Sulfate 325 MG Capsule as directed Orally Not-Taking/PRN Albuterol Sulfate 108 (90 Base) MCG/ACT Aerosol Powder Breath Activated 1 puff as needed Inhalation every 4 hrsNot-Taking/PRN Flonase 50 MCG/DOSE Inhaler 1 spray in each nostril Nasally Once a dayNot-Taking/PRN Ferrous Sulfate 325 MG Capsule as directed Orally DiscontinuedhydrOXYzine HCl 25 MG Tablet 1 tablet at bedtime as needed Orally Once a dayGabapentin 100 MG Capsule 2 tablets Orally Once a day hsMedication List reviewed and reconciled with the patientDiscontinued hydrOXYzine HCl 25 MG Tablet 1 tablet at bedtime as needed Orally Once a dayDiscontinued Gabapentin 100 MG Capsule 2 tablets Orally Once a day hsMedication List reviewed and reconciled with the patient * Allergies: N .K.D.A.yes[Allergies Verified] Objective: * Vitals: H t: 68, Wt:354, BMI:53.82, BP:122/94, Repeat BP:140/88 weight is up 54 pounds since 10-04-23 but the old scale was not correct back in September 2023. * P ast Orders: L ab:UA ClnCatch+Micro w/rflx Cult (Order Date - 05/21/2024) (Collection Date - 05/21/2024) Value Reference Range Color Urine Yellow - Appearance Urine Turbid - PH 5.5 5.0-9.0 - Glucose Urine UA Negative Negative - mg/dL Urine Blood Negative Negative - Specific Upper Tract - Urine 1.025 1.005-1.025 - Urine Protein Trace Neg-Trace - mg/dL Urine Ketones Negative Negative - mg/dL Nitrite Urine Negative Negative - Leukocyte Esterase Urine Moderate (2+) A Negative - RBC Urine 0-2 0-2 - /HPF WBC Urine >50 A 0-5 - /HPF Squamous Epithelial Cell Urine >20 0-2 - /HPF Bacteria Urine 4+ None Seen - Hyaline Casts Urine 0-2 0-2 - /LPF L ab:Urine Culture (Order Date - 05/21/2024) (Collection Date - 05/21/2024) Value Reference Range Urine Culture urogenital contamination. - L ab:Comprehensive [place]. Panel Fast (Order Date - 05/21/2024) (Collection Date - 05/21/2024) Value Reference Range Sodium 142 135-145 - mmol/L Bilirubin Total 0.3 0.0-1.0 - mg/dL Aspartate Amino Transferase 15 5-31 - U/L Alanine Aminotransferase 18 0-31 - U/L Total Protein 7.1 6.5-8.0 - g/dL Albumin Level 4.0 3.5-5.0 - g/dL Alkaline Phosphatase 86 39-117 - U/L Potassium 4.1 3.3-5.1 - mmol/L Chloride 105 96-108 - mmol/L Carbon Dioxide 27 22-29 - mmol/L Anion Gap 14 12-20 - Blood Urea Nitrogen 17 H 9-16 - mg/dL Creatinine 0.82 0.5-1.4 - mg/dL Estimated Glomerular Filt Rate > 60 - Glucose Fasting 95 60-99 - mg/dL Calcium 9.7 8.4-10.2 - mg/dL L ab:Lipid Panel (Order Date - 05/21/2024) (Collection Date - 05/21/2024) Value Reference Range Triglycerides 108 <150 - mg/dL Cholesterol 180 <200 - mg/dL LDL Cholesterol Calculated 120 H <100 - mg/dL HDL Cholesterol 39 L >40 - mg/dL * Examination: G eneral Examination: GENERAL APPEARANCE: w ell developed, well nourished, in no acute distress. HEAD: n ormocephalic, atraumatic. EYES: p upils equal, round, reactive to light and accommodation, sclera non-icteric. EARS: n ormal. ORAL CAVITY: m ucosa moist. THROAT: c lear. NECK/THYROID: n vitor supple, full range of motion, no cervical lymphadenopathy, no bruits. SKIN: w arm and dry, no suspicious lesions. HEART: r egular rate and rhythm, S1, S2 normal, no murmurs.? LUNGS: c lear to auscultation bilaterally. BREASTS: n ot examined done by pantograph operator. ABDOMEN: s oft, nontender, nondistended, bowel sounds present, normal, no organomegaly , no masses palpable. RECTAL EXAM: d one by pantograph operator. FEMALE GENITOURINARY: d one by pantograph operator. EXTREMITIES: n o clubbing, cyanosis, or edema. NEUROLOGIC: n onfocal, motor strength normal upper and lower extremities, sensory exam intact. Assessment: * Assessment: 1. A nnual physical exam - Z00.00 (Primary) 2 . U nintended weight gain - R63.5 3 .?ARCHANA (obstructive sleep apnea) - G47.33 4 . D ysthymia - F34.1 5 . E levated cholesterol - E78.00 6 . D epression screening - Z13.31 Plan: * Treatment: 2. U nintended weight gain L AB: Complete Blood Count Auto Diff ?LAB: TSH reflex Free T4 Notes: pending labs??3.?ARCHANA (obstructive sleep apnea)? Notes: has not gotten study yet, needs to schedule with Sleep medicine?? 4.?Dysthymia? Notes: doing well, will continue current regiment??5.?Elevated cholesterol? Notes: stable, will conitnue to monitor diet??6.?Depression screening? Notes: negative screen?? * Procedure Codes: 3 6415 VENIPUNCT, ROUTINE* * Preventive Medicine: Counseling: C are goal follow-up plan: Minesh choudhary for abnormal BMI provided?Yes, Luis Carlos beckett Normal BMI Follow-up Lucy giles encouragement to exercise. * Follow Up: 6 Months * * Sign off status: Completed true * Provider: Lucy Couch MD Date: 0 05/28/2024 Generated for Saeed astorga/Jonah/Giovannaitting on: 0 05/20/2025 12:23 PM EDT History and Physical Notes * HPI (History of Present Illness) Category Sub-Category Detail Notes Category Not es Depression Screening PHQ-9 Little inte rest or pleasure in doing things: Not at all patient is a 39 yo female here for yearly exam with review of recent labs and follow up of chronic issues. Feeling down, depressed, or hopeless: No t at all Trouble falling or staying asleep, or sl eeping too much: Not at all Feeling tired or having little energy: N ot at all Poor appetite or overeating: Not at all Feeling bad about yourself o r that you are a failure, or have let yourself or your family down: Not at all Trouble concentrating on thi ngs, such as reading the newspaper or watching television: Not at all Moving or speaking so slowly that other people could have noticed; or the opposite, being so fidgety or restless that you have been moving around a lot more than usual: Not at all Thoughts that you would be b keeley off or of hurting yourself in some way: Not at all Total Score: 0 Interpretation and Intervention Depression Amara mckeon Findings: Negative Follow-Up for Depression: : review of PH Q-9 found negative result, no follow-up needed SDOH Questions SDOH Questions In the past year have you been worried about losing housing?: No In the past year have you or any family members you live with been unable to get any of the following when it was really needed? Check all that apply:: None Communication Needs Communication Needs Does the patient have a hearing impairment: No Does the patient have a vision impairmen t?: Yes If yes, what is the vision impairment?: Glasses Does the patient have a cognition impair ment?: No Examination Category Sub-Category Detail Notes Category Not es General Examination GENERAL APPEARANCE: well dev eloped, well nourished, in no acute distress HEAD: normocephalic, atrau matic EYES: pupils equal, round, reactive to light and accommodation, sclera non-icteric EARS: normal THROAT: clear NECK/THYROID: neck supple, full ra nge of motion, no cervical lymphadenopathy, no bruits HEART: regular rate and rhy thm, S1, S2 normal, no murmurs LUNGS: clear to auscultatio n bilaterally ABDOMEN: soft, nontender, non distended, bowel sounds present, normal, no organomegaly , no masses palpable NEUROLOGIC: nonfocal, motor stre ngth normal upper and lower extremities, sensory exam intact SKIN: warm and dry, no kai picious lesions EXTREMITIES: no clubbing, cyanosi s, or edema BREASTS: not examined done by pantograph operator RECTAL EXAM: done by pantograph operator FEMALE GENITOURINARY: done by pantograph operator ORAL CAVITY: mucosa moist
--- OUTSIDE RECORDS SUMMARY | 2024-06-01 05:00 | XMS_ITS ---
Author Organization Ha Couch MD Address [address] [facility] [address] [place] [id number] Care Team Providers Care Patient Observation Assistant Name Role Phone Ha Couch Primary Care Provider Results Component Value Reference Range Notes IRON PROFILE Reviewed date:06/01/2024 12:28:10 PM Interpretation: Performing Lab:[facility], [address] [place] [phone] Notes/Report: Iron 42 30-160 mcg/dL Total Iron Binding Capacity 331 228-428 mcg/d L Percent Iron Saturation 13 15-50 % Unsaturated Iron Binding 289 REASON FOR VISIT Iron Encounters Encounter Location Date Provider Diagnosis Ha Couch MD [address] [place] [address] [address] [place] [phone] 06/01/2024 Ha Couch Anemia D64.9 Assessments Encounter Date Diagnosis (ICD Code) Assessment Notes Treatment Notes Treatment Clinical Notes Section Notes 06/01/2024 Anemia (ICD-10 - D64.9) Plan Of Treatment Next Appt Details Provider Name:Ha Munoz ier, 05/28/2025 09:30:00 AM, [address] [place] [address], Suite [facility], [place], [place], [phone], Progress Notes * Kelsi LUONGOB: [birth year] (40 yo F)Acc No.[id number]:06/01/2024 Progress Note Patient: Gabriela BOND Kaela Provider: Lucy Couch MD :1985 A ge:39 Y S ex:Female Date:06/01/2024 Address:[address], [id number] Subjective: * Chief Complaints: * 1 . Iron. * Medical History: Objective: * Vitals: Assessment: * Assessment: 1. A nemia - D64.9 (Primary) Plan: * Treatment: * Procedure Codes: 3 6415 VENIPUNCT, ROUTINE* * * The named appointment provid er may or may not be the originator of this progress note, and it is not deemed complete until electronically signed by the appointment provider. Sign off status: Pending * Provider: Lucy Couch MD Date: 0 06/01/2024 Generated for Saeed astorga/Jonah/Linda on: 0 05/20/2025 12:23 PM EDT
--- OUTSIDE RECORDS SUMMARY | 2024-06-01 10:45 | XMS_ITS ---
Author Organization Ha Couch MD Address [address] [place], [place] [id number] Care Team Providers Care Director Of Purchasing Name Role Phone Ha Couch Primary Care Provider Allergies No Known Allergies REASON FOR VISIT arm swollen after blood draw from this AM, Accompanied by sister Medications Medication SIG (Take, Route, Frequency, Duration) Notes Start Date End Date Status Gabapentin 600 MG 1 tablet Orally twic e a day Active Omeprazole 20 MG 1 tablet 30 minutes before morning meal Orally Once a day for 30 day(s) Active Lexapro 20 MG 1 tablet Orally Once a day Active Cholecalciferol 50 MCG (1999) 1 capsule Orally Once a day for 30 day(s) Active traZODone HCl 100 MG 1 tablet at bedtime Orally Once a day for 30 day(s) Active clonazePAM 0.5 MG 1 tablet Orally Once a day Active Norgestrel-Ethinyl Estradiol 0.3-30 MG-MCG 1 tablet Orally Once a day for 28 day(s) Active Flonase 50 MCG/DOSE 1 spray in each nostril Nasally Once a day for 30 day(s) Not-Taking Ferrous Sulfate 325 MG as directed Orally Not-Taking Albuterol Sulfate 108 (90 Base) MCG/ACT 1 puff as needed Inhalation every 4 hrs Not-Taking Problems Problem Type SNOMED Code ICD Code Onset Dates Problem Status W/U Status Risk Notes Problem [id number] Iron deficiency anemia due to chronic blood loss (D50.0) Active confirmed Vital Signs Blood pressure systolic 136 mm Hg 06/01/20 24 Blood pressure diastolic 80 mm Hg 024 Height 68 in 06/01/2024 Encounters Encounter Location Date Provider Diagnosis Ha Couch MD [address] [place], [place] [phone] 06/01/2024 Ha Couch Ecchymosis R58 and Iron deficiency anemia due to chronic blood loss D50.0 Assessments Encounter Date Diagnosis (ICD Code) Assessment Notes Treatment Notes Treatment Clinical Notes Section Notes 06/01/2024 Ecchymosis (ICD-10 - R58) warm compresses 06/01/2024 Iron deficiency anemia due to chronic blood loss (ICD-10 - D50.0) restart her iron Plan Of Treatment Treatment Notes Assessment Notes Ecchymosis warm compresses Iron deficiency anemia due to chronic bl ood loss restart her iron Next Appt Details Provider Name:Ha Munoz ier, 05/28/2025 09:30:00 AM, [address], [address], [place], [place], [phone], Progress Notes * Kelsi LUONGOB: [birth year] (39 yo F)Acc No.[id number]:06/01/2024 Progress Notes Patient: Kaela Alvarado Provider: Lucy Couch MD :1985 A ge:39 Y S ex:Female Date:06/01/2024 Address: [address] [place], [id number] Subjective: * Chief Complaints: * a rm swollen after blood draw from this AMAccompanied by sister * HPI: S ymptom(s): patient is a 39 yo female here for arm swelling after blood draw this morning. * ROS: G eneral/Constitutional: Denies C hills. D enies F atigue. D enies F ever. D enies H eadache. E NT: Patient denies d ecreased sense of smell , any loss of taste , sore throat. D enies S ore throat. R espiratory: Denies C ough. D enies S hortness of breath at rest. D enies S hortness of breath with exertion. G astrointestinal: Denies D iarrhea. D enies N ausea. M usculoskeletal: Patient denies m uscle aches. P eripheral Vascular: Patient denies r ed and blue toes. * Medical History: * Surgical History: * Hospitalization/Major Diagno stic Procedure: * Medications: T akingclonazePAM 0.5 MG Tablet 1 tablet Orally Once a dayNorgestrel-Ethinyl Estradiol 0.3-30 MG-MCG Tablet 1 tablet Orally Once a dayGabapentin 600 MG Tablet 1 tablet Orally twice a dayOmeprazole 20 MG Tablet Delayed Release 1 tablet 30 minutes before morning meal Orally Once a dayCholecalciferol 50 MCG (1999 UT) Capsule 1 capsule [...] Sulfate 325 MG Capsule as directed Orally Medication List reviewed and reconciled with the patientNot-Taking/PRN Albuterol Sulfate 108 (90 Base) MCG/ACT Aerosol Powder Breath Activated 1 puff as needed Inhalation every 4 hrsNot- Taking/PRN Flonase 50 MCG/DOSE Inhaler 1 spray in each nostril Nasally Once a dayNot- Taking/PRN Ferrous Sulfate 325 MG Capsule as directed Orally Medication List reviewed and reconciled with the patient * Allergies: N .K.D.A.yes[Allergies Verified] Objective: * Vitals: H t: 68, BP:136/80. * Examination: G eneral Examination: GENERAL APPEARANCE: alert, well hydrated, in no distress . EXTREMITIES: has some swelling and ecchymosis over her forearm. Assessment: * Assessment: 1. E cchymosis - R58 (Primary) 2 . I bladimir deficiency anemia due to chronic blood loss - D50.0 Plan: * Treatment: 2. I bladimir deficiency anemia due to chronic blood loss Notes: restart her iron * Procedure Codes: * * Sign off status: Completed true * Provider: Lucy Couch MD Date: 06/01/2024 Generated for Saeed astorga/Jonah/Giovannaitting on: 0 05/20/2025 12:24 PM EDT History and Physical Notes * HPI (History of Present Illness) Category Sub-Category Detail Notes Category Not es Symptom(s) patient is a 39 yo female here for arm swelling after blood draw this morning Examination Category Sub-Category Detail Notes Category Not es General Examination GENERAL APPEARANCE: alert, w ell hydrated, in no distress EXTREMITIES: has some swelling an d ecchymosis over her forearm
--- OUTSIDE RECORDS SUMMARY | 2024-11-26 06:00 | XMS_ITS ---
Author Organization Noa Couch MD Address [address] [place], [place] [phone] Care Team Providers Care Tree Pruner Name Role Phone Noa Couch Primary Care Provider [phone] Allergies No Known Allergies Reason For Referral Reason needs a sleep study Diagnosis 1 ARCHANA (obstructive sle ep apnea) (G47.33) Referral Organization Noa Couch MD Referring Provider First Name Noa Referring Provider Last Name Iza Referring Provider Speciality Internal M edicine Referred Provider KYRA JUNG Referred Provider Specialty Sleep Medici ne General Notes Enedina Riddle 0 11/26/2024 11:45:10 AM >info faxedJanessa Annette 12/21/2024 01:38:24 PM >patient called with info and mailed Referral Priority Routine Referral Appointment Date 01/14/2025 REASON FOR VISIT 6 months Medications Medication SIG (Take, Route, Frequency, Duration) Notes Start Date End Date Status Albuterol Sulfate 108 (90 Base) MCG/ACT 1 puff as needed Inhalation every 4 hrs Not-Taking Lexapro 20 MG 1 tablet Orally Once a day Active traZODone HCl 100 MG 1 tablet at bedtime Orally Once a day for 30 day(s) Active Ferrous Sulfate 325 MG as directed Orally Not-Taking Flonase 50 MCG/DOSE 1 spray in each nostril Nasally Once a day for 30 day(s) Not-Taking Cholecalciferol 50 MCG (2000 UT) 1 capsule Orally Once a day for 30 day(s) Active Omeprazole 20 MG 1 tablet 30 minutes before morning meal Orally Once a day for 30 day(s) Active Gabapentin 400 MG 1 tablet Orally twic e a day Active Norgestrel-Ethinyl Estradiol 0.3-30 MG-MCG 1 tablet Orally Once a day for 28 day(s) Active clonazePAM 0.5 MG 1 tablet Orally Once a day Active Vital Signs Blood pressure systolic 122 mm Hg 11/27/19 25 Blood pressure diastolic 88 mm Hg 025 Height 68 in 11/26/2024 Weight 356 lbs 11/26/2024 BMI 54.12 kg/m2 11/26/2024 weight is up 2 pounds since 05-28-24 Encounters Encounter Location Date Provider Diagnosis Noa Couch MD [address] [place] [address] Drive [address] [place] [phone] 11/26/2024 Noa Couch ARCHANA (obstructive sleep apnea) G47.33 ; Anxiety F41.9 and History of alcohol abuse F10.11 Assessments Encounter Date Diagnosis (ICD Code) Assessment Notes Treatment Notes Treatment Clinical Notes Section Notes 11/26/2024 ARCHANA (obstructive sleep apnea) (ICD-10 - G47.33) doesn't have cpap machine/ needs referral to sleep medicine. 11/26/2024 Anxiety (ICD-10 - F41.9) using gabapentin for this 11/26/2024 History of alcohol abuse (ICD-10 - F10.11) has been soberf for 7 years Plan Of Treatment Treatment Notes Assessment Notes ARCHANA (obstructive sleep apnea) doesn't jones ve cpap machine/ needs referral to sleep medicine. Anxiety using gabapentin for this History of alcohol abuse has been soberf for 7 years Referrals Referral Date Details 11/26/2024 11/26/2024, needs a sleep study, KYRA JUNG Next Appt Details Follow Up: 6 Months, Reason: Provider Name:Noa Munoz ier, 05/28/2025 09:30:00 AM, [address] [place] [address] Drive, [address], [place], [place], [phone], Progress Notes * Tylor LUONGConchitaOB: [birth year] (39 yo F)Acc No.[id number]:11/26/2024 Progress Notes Patient: Kaela PIERCE Provider: Lucy Couch MD :1985 A ge:39 Y S ex:Female Date:11/26/2024 Address:[address], [id number] Subjective: * Chief Complaints: * 6 months * HPI: S ymptom(s): patient is a 39 yo female here for 6 month follow up visit/ has been doing well. * ROS: G eneral/Constitutional: Denies C hills. D enies F atigue. D enies F ever. D enies H eadache. E NT: Patient denies d ecreased sense of smell, any loss of taste, sore throat. D enies S ore throat. [...] MG Tablet 1 tablet Orally Once a day Norgestrel-Ethinyl Estradiol 0.3-30 MG-MCG Tablet 1 tablet Orally Once a day Gabapentin 400 MG Capsule 1 tablet Orally twice a day Omeprazole 20 MG Tablet Delayed Release 1 tablet 30 minutes before morning meal Orally Once a day Cholecalciferol 50 MCG (2000 UT) Capsule 1 capsule Orally Once a day traZODone HCl 100 MG Tablet 1 tablet at bedtime Orally Once a day Lexapro 20 MG Tablet 1 tablet Orally Once a day Taking clonazePAM 0.5 MG Tablet 1 tablet Orally Once a day Taking Norgestrel-Ethinyl Estradiol 0.3-30 MG-MCG Tablet 1 tablet Orally Once a day Taking Gabapentin 400 MG Capsule 1 tablet Orally twice a day Taking Omeprazole 20 MG Tablet Delayed Release 1 tablet 30 minutes before morning meal Orally Once a day Taking Cholecalciferol 50 MCG (2000 UT) Capsule 1 capsule Orally Once a day Taking traZODone HCl 100 MG Tablet 1 tablet at bedtime Orally Once a day Taking Lexapro 20 MG Tablet 1 tablet Orally Once a day Not- Taking/PRNAlbuterol Sulfate 108 (90 Base) MCG/ACT Aerosol Powder Breath Activated 1 puff as needed Inhalation every 4 hrs Flonase 50 MCG/DOSE Inhaler 1 spray in each nostril Nasally Once a day Ferrous Sulfate 325 MG Capsule as directed Orally Medication List reviewed and reconciled with the patientNot-Taking/PRN Albuterol Sulfate 108 (90 Base) MCG/ACT Aerosol Powder Breath Activated 1 puff as needed Inhalation every 4 hrs Not-Taking/PRN Flonase 50 MCG/DOSE Inhaler 1 spray in each nostril Nasally Once a day Not-Taking/PRN Ferrous Sulfate 325 MG Capsule as directed Orally Medication List reviewed and reconciled with the patient * Allergies: N .K.D.A.yes[Allergies Verified] Objective: * Vitals: H t: 68, Wt: 356, BMI:54.12, BP:122/88, Wt-k.48. weight is up 2 pounds since 05-28-24. * Examination: G eneral Examination: GENERAL APPEARANCE: a lert, well hydrated, in no distress.? SKIN: g ood turgor. HEART: n o rubs, regular rate and rhythm. LUNGS: n o wheezes, rales, rhonchi, good air movement, clear to auscultation bilaterally. Assessment: * Assessment: 1. O SA (obstructive sleep apnea) - G47.33 (Primary) 2 . A nxiety - F41.9? 3. H istory of alcohol abuse - F10.11 Plan: * Treatment: 2. A nxiety Notes: using gabapentin for this 3. H istory of alcohol abuse Notes: has been soberf for 7 years * Procedure Codes: * Follow Up: 6 Months * * Sign off status: Completed true * Provider: Lucy Couch MD Date: 0 11/26/2024 Generated for Saeed astorga/Jonah/Giovannaitting on: 0 05/20/2025 12:23 PM EDT History and Physical Notes * HPI (History of Present Illness) Category Sub-Category Detail Notes Category Not es Symptom(s) patient is a 39 yo female here for 6 month follow up visit/ has been doing well Examination Category Sub-Category Detail Notes Category Not es General Examination GENERAL APPEARANCE: alert, w ell hydrated, in no distress HEART: no rubs, regular rat e and rhythm LUNGS: no wheezes, rales, r honchi, good air movement, clear to auscultation bilaterally SKIN: good turgor Consultation Request Notes Referral Date Referring Provider Referred Provider Not es 11/26/2024 Noa Couch PAUL needs a eep study
--- OUTSIDE RECORDS SUMMARY | 2025-05-20 03:00 | XMS_ITS ---
Author Organization Ha Couch MD Address [address] [place], [place] [id number] Care Team Providers Care Guitar Repairer Name Role Phone Ha Couch Primary Care Provider Results Component Value Reference Range Notes Complete Blood Count Auto Di ff (Not yet reviewed by provider) Interpretation: Performing Lab:[facility], [address] [place] [phone] Notes/Report: White Blood Count 7.0 4.8-10.8 X10*3/uL Red Blood Count 4.45 4.20-5.50 X10*6/uL Hemoglobin 12.8 12.0-16.0 g/dl Hematocrit 37.1 37.0-47.0 % Mean Corpuscular Volume 83.4 80.0-98.0 fL Mean Corpuscular Hemoglobin 28.8 27.0-33.0 pg Mean Corpuscular HGB Conc 34.5 31.0-35.0 g/dl Red Cell Distribution Width 13.8 11.0-16.0 % Platelet Count 258 160-400 X10*3/uL Mean Platelet Volume 11.9 9.4-12.3 fL Neutrophils Percent Auto 63.3 45-73 % Imm Gran Pct Auto 0.3 0.0-0.4 % Lymphocytes Percent Auto 22.7 20-40 % Monocytes Percent Auto 8.2 2-11 % Eosinophils Percent Auto 4.8 0-4 % Basophils Percent Auto 0.7 0-2 % NRBC Pct Auto 0.0 0.0-0.2 /100WBC Neutrophils Absolute Auto 4.5 2.0-8.3 x10*3/u L Imm Gran Abs Auto 0.02 0.00-0.03 X10*3/uL Lymphocytes Absolute Auto 1.6 1.2-4.9 X10*3/u L Monocytes Absolute Auto 0.6 0.1-1.2 X10*3/uL Eosinophils Absolute Auto 0.3 0.0-0.4 X10*3/u L Basophils Absolute Auto 0.1 0.0-0.2 X10*3/uL NRBC Abs Auto 0.000 0.0-0.012 X10*3/uL Comprehensive [place]. Panel Fa (Not yet reviewed by provider) Interpretation: Performing Lab:[facility], [address] [place] [phone] Notes/Report: Sodium 140 135-145 mmol/L Potassium 3.9 3.3-5.1 mmol/L Chloride 107 96-108 mmol/L Carbon Dioxide 24 22-29 mmol/L Anion Gap 13 12-20 Blood Urea Nitrogen 16 9-16 mg/dL Creatinine 0.88 0.5-1.4 mg/dL Estimated Glomerular Filt Rate > 60 Chronic Kidney Disease: Estimated GFR < 60 mL/min/1.73m2 Severe Kidney Disease: Estimated GFR < 15 mL/min/1.73m2 Glucose Fasting 90 60-99 mg/dL Calcium 9.0 8.4-10.2 mg/dL Bilirubin Total 0.5 0.0-1.0 mg/dL Aspartate Amino Transferase 22 5-31 U/L Alanine Aminotransferase 17 0-31 U/L Total Protein 7.1 6.5-8.0 g/dL Albumin Level 4.3 3.5-5.0 g/dL Alkaline Phosphatase 72 39-117 U/L IRON PROFILE (Not yet review ed by provider) Interpretation: Performing Lab:[facility], [address] [place] [phone] Notes/Report: Iron 73 30-160 mcg/dL Total Iron Binding Capacity 233 228-428 mcg/d L Percent Iron Saturation 31 15-50 % Unsaturated Iron Binding 160 Lipid Panel (Not yet reviewe d by provider) Interpretation: Performing Lab:[facility], [address] [place] [phone] Notes/Report: Triglycerides 96 <150 mg/dL Desirable Triglyceride: less than 150 mg/dL Borderline High Triglyceride 150-199 mg/dL High Triglyceride: 200-499 mg/dL Very High Triglyceride: greater than or equal to 5OO mg/dL Cholesterol 189 <200 mg/dL Desirable Cholesterol: less than 200 mg/dL Borderline High Cholesterol: 200-239 mg/dL High Cholesterol: greater than 239 mg/dL LDL Cholesterol Calculated 136 <100 mg/dL Desirable LDL: less than 100 mg/dL Near Optimal/Above Optimal LDL: 110-129 mg/dL Borderline High LDL: 130-159 mg/dL High LDL: 160-189 mg/dL Very High LDL: greater than or equal to 190 mg/dL HDL Cholesterol 34 >40 mg/dL Desirable HDL: greater than 40 mg/dL Note: This HDL assay may give artificially low results in patients with liver disease. UA ClnCatch+Micro w/rflx Cul t (Not yet reviewed by provider) Interpretation: Performing Lab:[facility], [address] [place] [phone] Notes/Report: [id number] Urine, Clean Catch Color Urine Yellow Appearance Urine Clear PH 5.5 5.0-9.0 Glucose Urine UA Negative Negative mg/dL Urine Blood Negative Negative Specific [place] - Urine 1.025 1.005-1.025 Urine Protein Negative Neg-Trace mg/dL Urine Ketones Negative Negative mg/dL Nitrite Urine Negative Negative Leukocyte Esterase Urine Small (1+) Negative RBC Urine 0-2 0-2 /HPF WBC Urine 0-5 0-5 /HPF Squamous Epithelial Cell Urine 6-10 0-2 /HPF Bacteria Urine 1+ None Seen Hyaline Casts Urine 0-2 0-2 /LPF REASON FOR VISIT yearly fasting labs Encounters Encounter Location Date Provider Diagnosis Ha Couch MD [address] [facility] [address] [place], [place] [phone] 05/20/2025 Ha Couch Blood tests for routine general physical examination Z00.00 ; Elevated cholesterol E78.00 and Iron deficiency anemia due to chronic blood loss D50.0 Assessments Encounter Date Diagnosis (ICD Code) Assessment Notes Treatment Notes Treatment Clinical Notes Section Notes 05/20/2025 Blood tests for routine general physical examination (ICD-10 - Z00.00) 05/20/2025 Elevated cholesterol (ICD-10 - E78.00) 05/20/2025 Iron deficiency anemia due to chronic blood loss (ICD-10 - D50.0) Plan Of Treatment Pending Test Test Name Order Date Complete Blood Count Auto Diff Comprehensive [place]. Panel Fast IRON PROFILE 05/20/2025 Lipid Panel 05/20/2025 UA ClnCatch+Micro w/rflx Cult 05/20/2025 Next Appt Details Provider Name:Ha Duke Munoz ier, 05/28/2025 09:30:00 AM, [address] [place] [address], [address], [place], [place], [phone], Progress Notes * Kelsi LUONGOB: [birth year] (40 yo F)Acc No.[id number]:05/20/2025 Progress Note Patient: Kaela PIERCE Provider: Lucy Couch MD :1985 A ge:40 Y S ex:Female Date:05/20/2025 Address:[address] [place] [address] [facility] Subjective: * Chief Complaints: * 1 . Yearly fasting labs. * Medical History: Objective: * Vitals: Assessment: * Assessment: 1. B lood tests for routine general physical examination - Z00.00 (Primary) 2 .?Elevated cholesterol - E78.00 3 . I bladimir deficiency anemia due to chronic blood loss - D50.0 Plan: * Treatment: 2. E levated cholesterol L AB: Complete Blood Count Auto Diff (Collection Date & Time - 05/20/2025 07:00 AM) L AB: Comprehensive [place]. Panel Fast (Collection Date & Time - 05/20/2025 07:00 AM) L AB: IRON PROFILE (Collection Date & Time - 05/20/2025 07:00 AM) L AB: Lipid Panel (Collection Date & Time - 05/20/2025 07:00 AM) L AB: UA ClnCatch+Micro w/rflx Cult (Collection Date & Time - 05/20/2025 07:00 AM) 3. I bladimir deficiency anemia due to chronic blood loss L AB: Complete Blood Count Auto Diff (Collection Date & Time - 05/20/2025 07:00 AM) L AB: Comprehensive [place]. Panel Fast (Collection Date & Time - 05/20/2025 07:00 AM) L AB: IRON PROFILE (Collection Date & Time - 05/20/2025 07:00 AM) L AB: Lipid Panel (Collection Date & Time - 05/20/2025 07:00 AM) L AB: UA ClnCatch+Micro w/rflx Cult (Collection Date & Time - 05/20/2025 07:00 AM) * Procedure Codes: 3 6415 VENIPUNCT, ROUTINE* * * The named appointment provid er may or may not be the originator of this progress note, and it is not deemed complete until electronically signed by the appointment provider. Sign off status: Pending * Provider: Lucy Couch MD Date: 0 05/20/2025 Generated for Saeed astorga/Jonah/Linda on: 05/20/2025 12:24 PM EDT
[2025-05-20 10:29] LABS: MANUAL DIFF FLAG NO
[2025-05-20 10:36] LABS: Appearance Urine Clear; Glucose Urine UA Negative (Negative); Hematocrit 37.1 % (37.0-47.0); Hemoglobin 12.8 g/dl (12.0-16.0); Imm Gran Abs Auto 0.02 X10*3/uL (0.00-0.03); Imm Gran Pct Auto 0.3 % (0.0-0.4); Lymphocytes Absolute Auto 1.6 X10*3/uL (1.2-4.9); Mean Corpuscular HGB Conc 34.5 g/dl (31.0-35.0); Mean Corpuscular Hemoglobin 28.8 pg (27.0-33.0); Mean Corpuscular Volume 83.4 fL (80.0-98.0); NRBC Abs Auto 0.000 X10*3/uL (0.0-0.012); NRBC Pct Auto 0.0 /100WBC (0.0-0.2); PH 5.5 (5.0-9.0); Platelet Count 258 X10*3/uL (160-400); Red Blood Count 4.45 X10*6/uL (4.20-5.50); Specific Gravity - Urine 1.025 (1.005-1.025); UMIC TRIGGER UACC YES; White Blood Count 7.0 X10*3/uL (4.8-10.8)
[2025-05-20 10:47] LABS: Alanine Aminotransferase 17 U/L (0-31); Albumin Level 4.3 g/dL (3.5-5.0); Alkaline Phosphatase 72 U/L (39-117); Anion Gap 13 (12-20); Aspartate Amino Transferase 22 U/L (5-31); Blood Urea Nitrogen 16 mg/dL (9-16); Calcium 9.0 mg/dL (8.4-10.2); Carbon Dioxide 24 mmol/L (22-29); Chloride 107 mmol/L (96-108); Cholesterol 189 mg/dL (<200); Estimated Glomerular Filt Rate > 60; HDL Cholesterol 34 mg/dL (>40); Iron 73 mcg/dL (30-160); Percent Iron Saturation 31 % (15-50); Potassium 3.9 mmol/L (3.3-5.1); Sodium 140 mmol/L (135-145); Total Iron Binding Capacity 233 mcg/dL (228-428); Total Protein 7.1 g/dL (6.5-8.0); Triglycerides 96 mg/dL (<150); Unsaturated Iron Binding 160 ug/dL
[2025-05-20 10:50] LABS: UACC Culture Trigger YES
--- OUTSIDE RECORDS SUMMARY | 2025-05-20 12:24 | XMS_ITS | Patient Health Record ---
Author Organization Ha Couch MD Address [address] [place], [place] [id number] Care Team Providers Care Hand Candy Molder Name Role Phone Ha Couch Primary Care Provider Allergies No Known Allergies Results Component Value Reference Range Notes Urine Culture Reviewed date:05/24/2024 08:49:48 AM Interpretation: Performing Lab:[facility], [address] [place] [phone] Notes/Report: Urine Culture Report Result Urine Culture > 100,000 cfu/ml Urine Culture Mixed bacterial ines a characteristic of Urine Culture urogenital contamination. Comprehensive [place]. Panel Fa Reviewed date:05/22/2024 08:47:48 AM Interpretation: Performing Lab:[facility], [address] [place] [phone] Notes/Report: Sodium 142 135-145 mmol/L Potassium 4.1 3.3-5.1 mmol/L Chloride 105 96-108 mmol/L Carbon Dioxide 27 22-29 mmol/L Anion Gap 14 12-20 Blood Urea Nitrogen 17 9-16 mg/dL Creatinine 0.82 0.5-1.4 mg/dL Estimated Glomerular Filt Rate > 60 NOTE: For -[place]aro[place] individuals, multiply the result by 1.210. Chronic Kidney Disease: Estimated GFR < 60 mL/min/1.73m2 Severe Kidney Disease: Estimated GFR < 15 mL/min/1.73m2 Glucose Fasting 95 60-99 mg/dL Calcium 9.7 8.4-10.2 mg/dL Bilirubin Total 0.3 0.0-1.0 mg/dL Aspartate Amino Transferase 15 5-31 U/L Alanine Aminotransferase 18 0-31 U/L Total Protein 7.1 6.5-8.0 g/dL Albumin Level 4.0 3.5-5.0 g/dL Alkaline Phosphatase 86 39-117 U/L Lipid Panel Reviewed date:05/21/2024 04:05:32 PM Interpretation: Performing Lab:[facility], [address] [place] [phone] Notes/Report: Triglycerides 108 <150 mg/dL Desirable Triglyceride: less than 150 mg/dL Borderline High Triglyceride 150-199 mg/dL High Triglyceride: 200-499 mg/dL Very High Triglyceride: greater than or equal to 5OO mg/dL Cholesterol 180 <200 mg/dL Desirable Cholesterol: less than 200 mg/dL Borderline High Cholesterol: 200-239 mg/dL High Cholesterol: greater than 239 mg/dL LDL Cholesterol Calculated 120 <100 mg/dL Desirable LDL: less than 100 mg/dL Near Optimal/Above Optimal LDL: 110-129 mg/dL Borderline High LDL: 130-159 mg/dL High LDL: 160-189 mg/dL Very High LDL: greater than or equal to 190 mg/dL HDL Cholesterol 39 >40 mg/dL Desirable HDL: greater than 40 mg/dL Note: This HDL assay may give artificially low results in patients with liver disease. UA ClnCatch+Micro w/rflx Cul t Reviewed date:05/22/2024 08:48:55 AM Interpretation: Performing Lab:[facility], [address] [place] [phone] Notes/Report: Urine, Clean Catch Color Urine Yellow Appearance Urine Turbid PH 5.5 5.0-9.0 Glucose Urine UA Negative Negative mg/dL Urine Blood Negative Negative Specific [place] - Urine 1.025 1.005-1.025 Urine Protein Trace Neg-Trace mg/dL Urine Ketones Negative Negative mg/dL Nitrite Urine Negative Negative Leukocyte Esterase Urine Moderate (2+) Negative RBC Urine 0-2 0-2 /HPF WBC Urine >50 0-5 /HPF Squamous Epithelial Cell Urine >20 0-2 /HPF Bacteria Urine 4+ None Seen Hyaline Casts Urine 0-2 0-2 /LPF Hold Gold Reviewed date:05/28/2024 05:01:42 PM Interpretation: Performing Lab:[facility], [address] [place] [phone] Notes/Report: Hold Gold See Note Specimen held untested for 24 hours; Call to request Chemistry testing. Complete Blood Count Auto Di ff Reviewed date:05/31/2024 03:27:23 PM Interpretation: Performing Lab:[facility], [address] [place] [phone] Notes/Report: White Blood Count 6.9 4.8-10.8 X10*3/uL [...] T4 Reviewed date:05/28/2024 05:01:51 PM Interpretation: Performing Lab:[facility], [address] [place] [phone] Notes/Report: TSH reflex Free T4 1.09 0.32-4.0 uIU/mL IRON PROFILE Reviewed date:06/01/2024 12:28:10 PM Interpretation: Performing Lab:[facility], [address] [place] [phone] Notes/Report: Iron 42 30-160 mcg/dL Total Iron Binding Capacity 331 228-428 mcg/dL Percent Iron Saturation 13 15-50 % Unsaturated Iron Binding 289 Hold Gold (Not yet reviewed by provider) Interpretation: Performing Lab:[facility], [address] [place] [phone] Notes/Report: Hold Gold See Note Specimen held untested for 24 hours; Call to request Chemistry testing. Complete Blood Count Auto Di ff (Not yet reviewed by provider) Interpretation: Performing Lab:[facility], [address] [place] [phone] Notes/Report: White Blood Count 7.0 4.8-10.8 X10*3/uL [...] NRBC Abs Auto 0.000 0.0-0.012 X10*3/uL Comprehensive [place]. Panel [facility] (Not yet reviewed by provider) Interpretation: Performing Lab:[address] [phone] Notes/Report: Sodium 140 135-145 mmol/L Potassium 3.9 [...] yet review ed by provider) Interpretation: Performing Lab:[address] [phone] Notes/Report: Iron 73 30-160 mcg/dL Total Iron Binding Capacity 233 228-428 mcg/dL Percent Iron Saturation 31 15-50 % Unsaturated Iron Binding 160 Lipid Panel (Not yet reviewe d by provider) Interpretation: Performing Lab:[address] [phone] Notes/Report: Triglycerides 96 <150 mg/dL Desirable Triglyceride: [...] (Not yet reviewed by provider) Interpretation: Performing Lab:[facility], [address] [place] [phone] Notes/Report: [id number] Urine, Clean Catch Color Urine Yellow Appearance Urine Clear PH 5.5 5.0-9.0 Glucose Urine UA Negative Negative mg/dL Urine Blood Negative Negative Specific [place] - Urine 1.025 1.005-1.025 Urine Protein Negative Neg-Trace mg/dL Urine Ketones Negative Negative mg/dL Nitrite Urine Negative Negative Leukocyte Esterase Urine Small (1+) Negative RBC Urine 0-2 0-2 /HPF WBC Urine 0-5 0-5 /HPF Squamous Epithelial Cell Urine 6-10 0-2 /HPF Bacteria Urine 1+ None Seen Hyaline Casts Urine 0-2 0-2 /LPF Reason For Referral Reason needs a sleep study Diagnosis 1 ARCHANA (obstructive sle ep apnea) (G47.33) Referral Organization Ha Couch MD Referring Provider First Name Ha Referring Provider Last Name Iza Referring Provider Speciality Internal M edicine Referred Provider KYRA JUNG Referred Provider Specialty Sleep Medici ne General Notes Enedina Riddle 0 11/26/2024 11:45:10 AM >info faxedJanessa Annette 12/21/2024 01:38:24 PM >patient called with info and mailed Referral Priority Routine Referral Appointment Date 01/14/2025 Medications Medication SIG (Take, Route, Frequency, Duration) Notes Start Date End Date Status Cholecalciferol 50 MCG (1999) 1 capsule Orally Once a day for 30 day(s) Active Omeprazole 20 MG 1 tablet 30 minutes before morning meal Orally Once a day for 30 day(s) Active Gabapentin 400 MG 1 tablet Orally twic e a day Active Norgestrel-Ethinyl Estradiol 0.3-30 MG-MCG 1 tablet Orally Once a day for 28 day(s) Active Albuterol Sulfate 108 (90 Base) MCG/ACT 1 puff as needed Inhalation every 4 hrs Not-Taking Lexapro 20 MG 1 tablet Orally Once a day Active traZODone HCl 100 MG 1 tablet at bedtime Orally Once a day for 30 day(s) Active clonazePAM 0.5 MG 1 tablet Orally Once a day Active Ferrous Sulfate 325 MG as directed Orally Not-Taking Flonase 50 MCG/DOSE 1 spray in each nostril Nasally Once a day for 30 day(s) Not-Taking Immunizations Vaccine Route Administration Date Status Comme nts SARS-COV-2 Pfizer Unknown 09/18/2020 Administered SARS-COV-2 Pfizer Unknown 10/09/2020 Administered SARS-COV-2 Pfizer Unknown 07/01/2021 Administered Social History Tobacco Use: Social History Observation [...] states stopped drink ing 5 years ago patient states stopped drink ing 5 years ago patient states stopped drink ing 5 years ago patient states stopped drink ing 5 years ago Problems Problem Type SNOMED Code ICD Code Onset Dates Problem Status W/U Status Risk Notes Problem 35953231 Anxiety (F41.9) Active confirmed Problem 404936569 Iron deficiency anemia due to chronic blood loss (D50.0) Active confirmed Problem 54643516 Dysthymia (F34.1) Active confirmed Problem 95633425 Elevated cholesterol (E78.00) Active confirmed Problem 58904151 ARCHANA (obstructive sleep apnea) (G47.33) Active confirmed Problem 172385791 History of alcohol abuse (F10.11) Active confirmed Vital Signs Blood pressure diastolic 88 mm Hg 11/26/2024 sharon ght is up 2 pounds since 05-28-24 Height 68 in 11/26/2024 weight is up 2 pounds since 05-28-24 Blood pressure systolic 122 mm Hg 11/26/2024 destiny ht is up 2 pounds since 05-28-24 Weight 356 lbs 11/26/2024 weight is up 2 pounds since 05-28-24 BMI 54.12 kg/m2 11/26/2024 weight is up 2 pounds since 05-28-24 Encounters Encounter Location Date Provider Diagnosis Ha Couch MD [address] [facility] [address] [phone] 05/21/2024 Ha Couch Annual physical exam Z00.00 and Elevated cholesterol E78.00 Ha Couch MD [address] [facility] [id number] 06/01/2024 Ha Couch Anemia D64.9 Ha Couch MD [address] [place] [phone] 05/20/2025 Ha Couch Blood tests for routine general physical examination Z00.00 ; Elevated cholesterol E78.00 and Iron deficiency anemia due to chronic blood loss D50.0 Ha Couch MD [address] [facility] [id number] 05/28/2024 Ha Couch Unintended weight gain R63.5 ; Annual physical exam Z00.00 ; ARCHANA (obstructive sleep apnea) G47.33 ; Dysthymia F34.1 ; Elevated cholesterol E78.00 and Depression screening Z13.31 Ha Couch MD [address] [place] [id number] 06/01/2024 Ha Couch Ecchymosis R58 and Iron deficiency anemia due to chronic blood loss D50.0 Ha Couch MD [address] [place] [address] [phone] 11/26/2024 Ha Couch ARCHANA (obstructive sleep apnea) G47.33 ; Anxiety F41.9 and History of alcohol abuse F10.11 Assessments Encounter Date Diagnosis (ICD Code) Assessment Notes Treatment Notes Treatment Clinical Notes Section Notes 05/21/2024 Annual physical exam (ICD-10 - Z00.00) 05/21/2024 Elevated cholesterol (ICD-10 - E78.00) 06/01/2024 Anemia (ICD-10 - D64.9) 05/20/2025 Blood tests for routine general physical examination (ICD-10 - Z00.00) 05/28/2024 Unintended weight gain (ICD-10 - R63.5) pending labs 05/28/2024 Annual physical exam (ICD-10 - Z00.00) labs reviewed and discussed with patient 06/01/2024 Ecchymosis (ICD-10 - R58) warm compresses 06/01/2024 Iron deficiency anemia due to chronic blood loss (ICD-10 - D50.0) restart her iron 11/26/2024 ARCHANA (obstructive sleep apnea) (ICD-10 - G47.33) doesn't have cpap machine/ needs referral to sleep medicine. 05/20/2025 Elevated cholesterol (ICD-10 - E78.00) 05/28/2024 ARCHANA (obstructive sleep apnea) (ICD-10 - G47.33) has not gotten study yet, needs to schedule with Sleep medicine 11/26/2024 Anxiety (ICD-10 - F41.9) using gabapentin for this 05/20/2025 Iron deficiency anemia due to chronic blood loss (ICD-10 - D50.0) 05/28/2024 Dysthymia (ICD-10 - F34.1) doing well, will continue current regiment 11/26/2024 History of alcohol abuse (ICD-10 - F10.11) has been soberf for 7 years 05/28/2024 Elevated cholesterol (ICD-10 - E78.00) stable, will conitnue to monitor diet 05/28/2024 Depression screening (ICD-10 - Z13.31) negative screen Plan Of Treatment Pending Test Test Name Order Date Complete Blood Count Auto Diff 5 Comprehensive [place]. Panel Fast 5 IRON PROFILE 05/20/2025 Lipid Panel 05/20/2025 Hold Gold 05/20/2025 UA ClnCatch+Micro w/rflx Cult 05/20/2025 Next Appt Details Provider Name:Ha carter, 05/28/2025 09:30:00 AM, [address] [place] [address], [address], [place], [place], [phone], Insurance Providers Payer Name Payer Address Payer Phone Subscriber Number Group Number Insured Name Patient Relationship to Insured Coverage Start Date Coverage End Date [facility] [address] [address] [place] [address] [phone] [id number] Kaela Luong Self - patient is the insured Medical (General) History Medical History History ICD Code ariprazole is abilify
== END 2025-05-20 10:26 | disposition home or self-care (01) ==
LOC: HO.LNP 10:25
PROVIDERS: Visit Provider Internal Medicine
DX: Z00.00 Encounter for general adult medical examination without abnormal findings (principal); E78.00 Pure hypercholesterolemia, unspecified; D50.0 Iron deficiency anemia secondary to blood loss (chronic)
CPT/HCPCS: 80053; 80061; 81001; 83540; 85025; 87086